=== PATIENT | male | born 2000 | race Caucasian/White ===

== ENCOUNTER 2019-01-23 14:21 | Inpatient (IN) | payer OTHER ==
[~2019-01-23] VITALS: Ht 185.4 cm; Wt 68.0 kg
[2019-01-23 14:30] VITALS: BP 120/79
[2019-01-23] MEDS ORDERED: LEXAPRO 10 MG T10 M2 PO (14:32)
[2019-01-23 15:01] LABS: ABSOLUTE LYMPHOCYTES 0.9 thou/uL (0.8-5.3); ABSOLUTE MONOCYTES 0.4 thou/uL (0.0-1.2); ABSOLUTE NEUTROPHILS 5.4 thou/uL (1.6-8.1); BASOPHILS 0.5 %; EOSINOPHILS 0.7 %; HEMATOCRIT 42.7 % (42.0-52.0); HEMOGLOBIN 14.8 gm/dL (14.0-18.0); LYMPHOCYTES 13.3 %; MCH 29.1 pg (26.0-34.0); MCHC 34.7 g/dL (28.0-37.0); MCV 83.7 fL (80.0-100.0); MONOCYTES 5.8 %; MPV 7.6 fl. (7.2-11.1); NUCLEATED RBCS 0 /100WBC; PLATELET COUNT* 249 thou/uL (150-400); POLYS 79.7 %; RBC 5.11 mil/uL (4.50-6.00); WBC 6.8 thou/uL (4.0-11.0)
[2019-01-23 15:10] LABS: CALCIUM 9.2 mg/dL (8.5-10.1); CREATININE 1.2 mg/dL (0.6-1.3); POTASSIUM 3.7 mmol/L (3.5-5.1)
[2019-01-23 15:14] LABS: ALBUMIN 4.3 g/dL (3.4-5.0); TOTAL BILIRUBIN 0.5 mg/dL (<0.1-1.0); TOTAL PROTEIN 7.3 g/dL (6.4-8.2)
[2019-01-23 17:32] LABS: URINE BILIRUBIN NEGATIVE (Negative); URINE BLOOD NEGATIVE (Negative); URINE CLARITY CLEAR; URINE COLOR YELLOW; URINE GLUCOSE-RANDOM NEGATIVE (Negative); URINE KETONES NEGATIVE (Negative); URINE LEUKOCYTES-REFLEX NEGATIVE (Negative); URINE NITRITE-REFLEX NEGATIVE (Negative); URINE PROTEIN NEGATIVE (Negative); URINE UROBILINOGEN 0.2 E.U./dl (0.2-1.0)
[2019-01-23 17:39] LABS: AMP/METHAMP Negative (Negative); BARBITURATES Negative (Negative); BENZODIAZEPINES Negative (Negative); COCAINE Negative (Negative); METHADONE Negative (Negative); OPIATES Negative (Negative); PCP Negative (Negative); THC POSITIVE (Negative)
[2019-01-23 17:45] VITALS: BP 105/60
[2019-01-23 18:30] VITALS: BP 105/69
[2019-01-23 19:30] VITALS: BP 110/75
[2019-01-24 05:14] LABS: ABSOLUTE BASOPHILS 0.1 thou/uL (0.0-0.2); ABSOLUTE EOSINOPHILS 0.1 thou/uL (0.0-0.7); ABSOLUTE LYMPHOCYTES 1.8 thou/uL (0.8-5.3); ABSOLUTE MONOCYTES 0.5 thou/uL (0.0-1.2); ABSOLUTE NEUTROPHILS 4.5 thou/uL (1.6-8.1); BASOPHILS 0.8 %; EOSINOPHILS 1.6 %; HEMATOCRIT 39.9 % (42.0-52.0); HEMOGLOBIN 14.2 gm/dL (14.0-18.0); LYMPHOCYTES 26.2 %; MCH 30.1 pg (26.0-34.0); MCHC 35.6 g/dL (28.0-37.0); MCV 84.6 fL (80.0-100.0); MONOCYTES 7.1 %; NUCLEATED RBCS 0 /100WBC; PLATELET COUNT* 216 thou/uL (150-400); POLYS 64.3 %; RBC 4.71 mil/uL (4.50-6.00); RDW-CV 13.2 % (10.5-14.5); WBC 6.9 thou/uL (4.0-11.0)
[2019-01-24 05:30] LABS: APTT 28.2 Seconds (25.0-31.3); INR 1.2
[2019-01-24 05:35] LABS: CALCIUM 8.7 mg/dL (8.5-10.1); MAGNESIUM 1.9 mg/dL (1.8-2.4); POTASSIUM 3.5 mmol/L (3.5-5.1)
[2019-01-24 08:10] VITALS: BP 94/52
[2019-01-24 19:50] VITALS: BP 113/68
[2019-01-25 04:08] LABS: CALCIUM 8.9 mg/dL (8.5-10.1); CREATININE 1.1 mg/dL (0.6-1.3); POTASSIUM 3.3 mmol/L (3.5-5.1)
[2019-01-25 08:00] VITALS: BP 106/60
[2019-01-25] MEDS ORDERED: PROTONIX40 M2 PO (10:45)
[2019-01-25 11:47] VITALS: BP 106/60
[2019-01-25 15:15] VITALS: BP 106/60
== END 2019-01-25 15:15 | disposition home or self-care (01) | DRG 392 ==
LOC: M.ERS 14:21 → M.ORTHSURG 16:48 → M.TBA-ER 16:48 → M.ORTHSURG 17:55
PROVIDERS: Nurse Practitioner Family; ADMIT Family Medicine
DX: R11.2 Nausea with vomiting, unspecified (principal); F17.210 Nicotine dependence, cigarettes, uncomplicated; F12.90 Cannabis use, unspecified, uncomplicated; K27.9 Peptic ulcer, site unspecified, unspecified as acute or chronic, without hemorrhage or perforation; Z79.899 Other long term (current) drug therapy